=== PATIENT | female | born 1970 | race Caucasian/White ===

== ENCOUNTER 2017-04-09 18:34 | Emergency (ER) | payer OTHER ==
[~2017-04-09] VITALS: Ht 157.5 cm; Wt 45.3 kg
[~2017-04-09 18:34] MED LIST: CLARITIN-D 11 TABLE1 PO; TOPAMAX50 MG PO; UNABLEOBTAIN
[2017-04-09 20:38] VITALS: BP 118/78
== END 2017-04-09 20:39 | disposition home or self-care (01) ==
LOC: EME 18:34
DX: M25.511 Pain in right shoulder (principal); G89.29 Other chronic pain; Z87.828 Personal history of other (healed) physical injury and trauma; Z88.0 Allergy status to penicillin; Z88.8 Allergy status to other drugs, medicaments and biological substances
CPT/HCPCS: 99281; 99284; J3010